=== PATIENT | female | born 1985 ===

== ENCOUNTER 2016-03-25 05:06 | Emergency (ER) | payer MEDICAID ==
[2016-03-25] MEDS ORDERED: IOPAMIDOL 300 (61%) 150 ML VIAL IV ONE (05:07)
[2016-03-25 06:12] LABS: ABSOLUTE NEUTROPHIL COUNT 5.4 K/mm3 (1.8-7.7); BASO % 0.1 % (0.2-1.0); EOS # 0.1 (0.0-0.5); EOS % 1.6 % (0.9-2.9); HEMATOCRIT 36.5 % (37.0-47.0); HEMOGLOBIN 12.1 gm/l (12.0-16.0); IMM NEUT% 0.3 % (0-1); LYMPH # 1.9 (1.0-4.8); LYMPH % 24.2 % (15-45); MEAN CELL VOLUME 84.3 fl (81.0-99.0); MEAN CORPUSCULAR HEMOGLOBIN 27.9 pg (27.0-31.0); MEAN CORPUSCULAR HGB CONC 33.2 g/dl (33.0-37.0); MEAN PLATELET VOLUME 10.4 fl (7.4-10.4); MONO # 0.4 (0.0-0.8); MONO % 5.4 % (4-12); NEUT % 68.4 % (43-75); PLATELET COUNT 343 K/mm3 (130-400); RED CELL DISTRIBUTION WIDTH 12.7 % (11.5-14.5)
[2016-03-25 06:23] LABS: ALB/GLOB RATIO 1.1 (>1.0); ALBUMIN 4.2 gm/dL (3.5-5.7); CALCIUM 9.6 mg/dL (8.6-10.3); PH,URINE 6.5 (5.0-8.0); SPECIFIC GRAVITY 1.015 (1.001-1.030); URINE BILIRUBIN NEGATIVE (NEGATIVE); URINE BLOOD NEGATIVE (NEGATIVE); URINE GLUCOSE (UA) NEGATIVE (NEGATIVE); URINE LEUKOCYTE ESTERASE NEGATIVE (NEGATIVE); URINE NITRITE NEGATIVE (NEGATIVE); URINE PROTEIN TRACE (NEGATIVE); URINE UROBILINOGEN NORMAL (0-1 mg/dl)
[2016-03-25 06:24] LABS: HCG,QUALITATIVE URINE NEGATIVE
[2016-03-25 06:25] LABS: URINE APPEARANCE CLEAR; URINE COLOR YELLOW
--- NOTE | 2016-03-25 08:16 | CT ---
CT ABDOMEN AND PELVIS WITH CONTRAST HISTORY: Left lower quadrant pain. TECHNIQUE: Following intravenous administration of 125 mL Isovue-300, contiguous axial images were acquired from the lung bases to the ischial tuberosities. Oral contrast was not administered. COMPARISON:None. FINDINGS: LUNG BASES: Minor atelectatic change. No gross airspace consolidation or pleural effusion. LIVER: No focal lesion. SPLEEN: No focal lesion. PANCREAS: No focal lesion. ADRENAL GLANDS: No mass effect. KIDNEYS: No focal lesion. No collecting system dilatation. GALLBLADDER: Present. BOWEL: Moderate fecal load.. Inflammatory change of fat identified anterior to the descending colon. No abnormal small bowel dilatation. Minor changes of sigmoid diverticulosis. APPENDIX: Normal gas-filled appendix. PELVIC ORGANS: No dominant adnexal lesion. Intrauterine device identified within retroverted uterus. FREE FLUID: Minimal free fluid at the left hemipelvis which may simply be physiologic ABDOMINOPELVIC LYMPH NODES: No abnormally enlarged lymph nodes identified. ABDOMINAL AORTA: Normal caliber. OSSEOUS STRUCTURES: No grossly destructive lesions. IMPRESSION: 1. Findings most in keeping with epiploic appendage on this in association with the descending colon. No obstructive change of bowel. Normal appendix. 2. Intrauterine device is noted. 3. Minimal pelvic free fluid which may simply be physiologic. Preliminary report relayed to the Emergency Medicine medical service by Dr. Spencer on 03/25/2016 at 0812 hours.
== END 2016-03-25 07:49 | disposition home or self-care (01) ==
LOC: ED 05:06
DX: K63.89 Other specified diseases of intestine (principal)
CPT/HCPCS: 83690; 81025; 85025; 80053; 81003; 74177; 99284 ×2; Q9967